=== PATIENT | female | born 1970 | race Caucasian/White ===

== ENCOUNTER → 2017-01-15 | Outpatient (CLI) | payer BC ==
[~2017-01-15] MED LIST: ESCITALOPRAM OX20 MG PO; FENOFIBRATE145 M1 PO; FISH OIL CONC1000 MG PO; HYDROCHLOROTH12.5 M1 PO; METFORMIN PO; NORFLEX100 M1 PO; PROTONIX PO; SIMVASTATIN20 MG PO; TOPAMAX PO
--- NOTE | ~2017-01-15 | CR97 ---
[facility] A Service of [facility] & [facility] [place] RADIOLOGY TEXT RESULTS PATIENT: MARLENI LOVELL LOCATION: [facility] : 74 UNIT #: [id number] AGE: [address]: Thang Fenton MD SEX: F ORDER DR: [id number] [facility] [address] [place], [place] [address] [id number] O MR#: [id number] Acc #: [id number] NAME: MARLENI LOVELL : 1970 SEX: F STUDY DATE/TIME: 01/15/2017 10:50 UNIT: [facility] ROOM: STUDY DESCRIPTION: CR Esophagram Attending Physician: Thang Fenton M.D. Referring Physician: Thang Fenton M.D. Ordering Physician: Thang Fenton M.D. Primary Care Physician: Primary Care Physician No MEDICAL IMAGING REPORT This report is preliminary unless electronic signature is present EXAM Esophagram 01/15/2017 HISTORY History of Lap-Band with nausea and vomiting. FINDINGS There is no stricture, mass or ulceration. The Lap-Band is now positioned below the uppermost gastric fundus, and certainly below the gastroesophageal junction. A small portion of the fundus extends above the Lap-Band though there is no obstruction to flow of liquid oral contrast. A total of 11 spot images and a single overhead view were obtained, 0.4 minutes of fluoroscopy was utilized. Dictated by... Immanuel Oropeza M.D. THIS IS AN ELECTRONICALLY VERIFIED REPORT Immanuel Oropeza M.D. at 01/17/2017 2:07 PM CONCHITA/jeet TD: 01/16/2017 08:19 JOB #: [id number] MEDICAL IMAGING REPORT Page 1 of 1 COPY
== END | disposition home or self-care (01) ==
LOC: CRAD 10:20
DX: R13.10 Dysphagia, unspecified (principal)
CPT/HCPCS: 74220